=== PATIENT | female | born 2000 | race Caucasian/White ===

== ENCOUNTER 2021-07-23 14:23 | Emergency (ER) | payer BC ==
[~2021-07-23 14:23] MED LIST: BENTYL 20MG TAB20 MG PO; ZOFRAN ODT 4 MG4 MG PO
[2021-07-23] MEDS ORDERED: IBUPROFEN800 MG PO (15:21)
[2021-07-23] MEDS ORDERED: VALTREX1000 MG PO (15:21)
[2021-07-23] MEDS ORDERED: OMNICEF 300 MG300 MG PO (15:41)
[2021-07-24 22:09] LABS: CHLAMYDIA TRACHOMATIS, NAA Negative (Negative); NEISSERIA GONORRHOEAE, NAA Negative (Negative)
== END 2021-07-23 15:28 | disposition home or self-care (01) ==
LOC: ER1 14:23
PROVIDERS: Physician Assistant
DX: N39.0 Urinary tract infection, site not specified (principal); N76.0 Acute vaginitis; Z20.822 Contact with and (suspected) exposure to COVID-19
CPT/HCPCS: 81001; 84703; 87086; 87210; 96372; 99283; J0696